=== PATIENT | male | born 1950 | race Caucasian/White ===

== ENCOUNTER → 2016-06-25 | Outpatient (CLI) | payer MEDICARE, OTHER ==
[~2016-06-25] MED LIST: BARIUM SUSPENSION 2.1% (VANILLA SILQ) 450 ML PO ONE; CATHETER FLUSH 10 ML SYR IV PRN; IOHEXOL 350 MG/ML 100 ML (OMNIPAQUE 350) VIAL IV ONE; NS 100 ML (IVPB) BAG IV ONE
--- NOTE | 2016-06-25 13:28 | Diagnostic Imaging Report ---
PROCEDURE: CT abdomen and pelvis with contrast. TECHNIQUE: Multiple contiguous axial images were obtained through the abdomen and pelvis after administration of intravenous contrast. INDICATION: Back pain, elevated PSA. COMPARISON: No priors. FINDINGS: There is a tiny cyst, 1 cm, off the upper pole of the left kidney. This showed no complexity. Kidneys are otherwise normal. No opaque stone. No hydronephrosis. The liver, gallbladder, adrenals, spleen, and pancreas are all unremarkable. No abdominal or pelvic mesenteric or retroperitoneal adenopathy. The urinary bladder had an unremarkable appearance. It is not well distended resulting in some thickening of its smith limiting its evaluation. There is a small hiatal hernia. There is no ascites, abscess, hematoma, or other fluid collection. There is no free air. There is solid posterior bony fusion of the lower lumbar spine and lumbosacral junction. There are degenerative changes with spondylosis. No acute-appearing osseous pathology. IMPRESSION: Unobstructed urinary tracts. No mass or adenopathy. Simple left renal cortical cyst. Small hiatal hernia. Spondylosis and prior lumbar surgery. No acute finding. Dictated by: Dictated on workstation # [id number]
--- NOTE | 2016-06-25 16:58 | Diagnostic Imaging Report ---
Whole body bone scan. Technique: After the intravenous administration of 26.3 mCi of Technetium 99m MDP, whole body delayed phase bone scan images were obtained with lateral views of the head and neck and the chest regions. INDICATION: Prostate cancer. FINDINGS: Mild areas of increased activity in the lumbar spine are seen favored to be degenerative. There is mild the joint-related activity mostly in the shoulders and around the sternoclavicular joints and SI joints in a somewhat symmetric fashion, probably degenerative-related. Renal excretion and bladder activity is noted. IMPRESSION: Mild midlumbar spine activity is favored to be degenerative with no convincing evidence of metastasis. Dictated by: Dictated on workstation # [id number]
== END ==
LOC: CARD 11:03
PROVIDERS: ATTEND Internal Medicine
DX: R97.20 Elevated prostate specific antigen [PSA] (principal); M54.9 Dorsalgia, unspecified; R35.1 Nocturia
CPT/HCPCS: 74177; 78306

== ENCOUNTER 2016-08-12 14:07 | Outpatient (RCR) | payer MEDICARE, OTHER | END 2016-11-10 | disposition home or self-care (01) | LOC: ONC 14:07 | PROVIDERS: ATTEND Radiology Radiation Oncology | DX: C61 Malignant neoplasm of prostate (principal) | CPT/HCPCS: 99214 ==

== ENCOUNTER 2016-12-02 13:46 | Outpatient (RCR) | payer MEDICARE, OTHER ==
[2016-12-16] MEDS ORDERED: ASPI-586 PO (12:06)
[2016-12-16] MEDS ORDERED: BUPR300T43 PO (12:06)
[2016-12-16] MEDS ORDERED: MULT1TAB69 PO (13:32)
[2016-12-16] MEDS ORDERED: OMG1KC PO (13:32)
[2016-12-16] MEDS ORDERED: GLUC100016 PO (13:32)
[2016-12-16] MEDS ORDERED: BUPR300T51 PO (13:32)
[2016-12-16] MEDS ORDERED: CALC-654 PO (13:32)
[2016-12-19] MEDS ORDERED: CIPR-225 PO (09:41)
[2016-12-19] MEDS ORDERED: HYDR-3874 PO (09:41)
[2016-12-19] MEDS ORDERED: SILO8CAP PO (09:41)
[2016-12-19] MEDS ORDERED: PHEN-640 PO (09:41)
== END 2017-01-03 | disposition home or self-care (01) ==
LOC: ONC 13:46
PROVIDERS: ATTEND Radiology Radiation Oncology
DX: C61 Malignant neoplasm of prostate (principal)
CPT/HCPCS: 76873

== ENCOUNTER 2016-12-16 11:52 | Outpatient (CLI) | payer MEDICARE, OTHER ==
[~2016-12-16] VITALS: Ht 172.7 cm; Wt 89.8 kg
[2016-12-16 12:01] VITALS: BP 171/103
[2016-12-16] MEDS ORDERED: BUPR300T43 PO (12:06)
[2016-12-16] MEDS ORDERED: ASPI-586 PO (12:06)
[2016-12-16] MEDS ORDERED: GLUC100016 PO (13:32)
[2016-12-16] MEDS ORDERED: BUPR300T51 PO (13:32)
[2016-12-16] MEDS ORDERED: MULT1TAB69 PO (13:32)
[2016-12-16] MEDS ORDERED: OMG1KC PO (13:32)
[2016-12-16] MEDS ORDERED: CALC-654 PO (13:32)
--- NOTE | 2016-12-16 14:04 | Diagnostic Imaging Report ---
PA and lateral views of the chest. INDICATION: Preoperative evaluation for brachytherapy. FINDINGS: The lungs are clear. The heart size is normal. No effusion or pneumothorax. The mediastinum and vinny appear unremarkable. IMPRESSION: Unremarkable exam. Dictated by: Dictated on workstation # [id number]
== END 2016-12-16 12:40 | disposition home or self-care (01) ==
LOC: PREOP 11:52
PROVIDERS: ATTEND Urology
DX: Z01.811 Encounter for preprocedural respiratory examination (principal); C61 Malignant neoplasm of prostate
CPT/HCPCS: 71020; 87081

== ENCOUNTER 2016-12-19 06:09 | Day surgery (SDC) | payer MEDICARE, OTHER ==
[~2016-12-19] VITALS: Ht 172.7 cm; Wt 89.8 kg
[~2016-12-19 06:09] MED LIST changes: +ASPI-586 PO; -BARIUM SUSPENSION 2.1% (VANILLA SILQ) 450 ML PO ONE; +BUPR300T43 PO; +BUPR300T51 PO; +CALC-654 PO; -CATHETER FLUSH 10 ML SYR IV PRN; +GLUC100016 PO; -IOHEXOL 350 MG/ML 100 ML (OMNIPAQUE 350) VIAL IV ONE; +MULT1TAB69 PO; -NS 100 ML (IVPB) BAG IV ONE; +OMG1KC PO
--- OUTSIDE RECORDS SUMMARY | 2016-12-19 06:18 | XMS REPORT | Clinical Summary ---
Author Author [facility] Organization [facility] Address Unknown Phone Unavailable Care Team Providers Care Hotel Operations Manager Name Role Phone PCP Unavailable Source Comments Some departments are not documenting in the electronic medical record. If you do not see the information that you expected, contact Release of Information in the Health Information Management department at [phone] for further assistance in locating additional records.[facility] Allergies Active Allergy Reactions Severity Noted Date Comments Hay Fever And Allergy RHINORRHEA Low 08/26/2016 Relief Current Medications Prescription Sig. Disp. Refills Start End Date Status Date buPROPion XL (WELLBUTRIN 300 mg. 08/22/19 Active XL) 300 mg tablet 17 aspirin EC 81 mg tablet Take 81 mg by mouth Active daily. Take with food. naproxen (NAPROSYN) 500 Take 500 mg by mouth Active mg tablet twice daily with meals. Take with food. FOLIC Take by mouth. Active ACID/MULTIVIT-MIN/LUTEIN (CENTRUM SILVER PO) DOCOSAHEXANOIC ACID/EPA Take 1,000 mg by mouth. Active (FISH OIL PO) GLUC PIEDRA/CHONDRO PIEDRA A/VIT Take 1,500 mg by mouth. Active C/MN (GLUCOSAMINE 1500 COMPLEX PO) OMEPRAZOLE (PRILOSEC PO) Take 200 mg by mouth as Active Needed. Active Problems Problem Noted Date Prostate cancer (HCC) 08/26/2016 Overview: 06/05/16: PSA 60.6 06/25/16: PSA >50 07/09/16: TRUSP bx - Shyla 5+3=8, 3+5=8, 3+4=7, 3+3=6 in 07/17 cores with two cores suspicious for adenocarcinoma 08/26/16: Initial visit with Dr. Neel oh Assessment & Plan: Mr. Malin is a 65 year old gentleman self-referred to Dr. Shaikh for a new diagnosis of high risk prostate cancer. He had 4/ cores positive for cancer with one core 5+3=8 and a second core 3+5=8, after having an elevated PSA to 60.6 which was the first PSA test of his life. Plan: - I had an extensive consultation with the patient today reviewing the spectrum of prostate cancer treatment options, including the pros and cons and risks and benefits of each. Surgery (RRP, RALP) Radiation (XRT, BrachyTx) Cryoablation High Intensity Focused Ultrasound (HIFU) Androgen Deprivation Tx (ADT) Active surveillance () Risks and complications of surgery, especially stress incontinence and erectile dysfunction reviewed in detail. Differences between robotic prostatectomy and radical retropubic prostatectomy reviewed. Typical benefit of robotic prostatectomy include less blood loss and shorter hospital stay, but otherwise results are similar in regards to oncologic outcome, stress incontinence and erectile dysfunction compared to retropubic prostatectomy. Risks and complications of radiation, reviewed. I discussed that given his high risk disease with a high PSA and shyla pattern 5 disease, there is an increased risk that his prostate cancer is no longer confined to the prostate. Based on the [facility] nomogram, his risk of having non-organ confined disease is 97% with 38% change of lymph node involvement. After careful consideration, the patient would like to proceed with radiation and androgen deprivation therapy which he will have done in [place], [place]. Family History Medical History Relation Name Comments Hypertension Brother Diabetes Mother Heart Disease Mother Hypertension Mother Kidney Disease Mother Diabetes Sister Relation Name Status Comments Brother Mother Sister Social History Tobacco Use Types Packs/Day Years Used Date Never Smoker Sex Assigned at Date Recorded Not on file Last Filed Vital Signs Vital Sign Reading Time Taken Blood Pressure 148/88 08/26/2016 1:42 PM CDT Pulse 68 08/26/2016 1:42 PM CDT Temperature - - Respiratory Rate - - Oxygen Saturation - - Inhaled Oxygen - - Concentration Weight 89.4 kg (197 lb) 08/26/2016 1:42 PM CDT Height 172.7 cm (5' 8") 08/26/2016 1:42 PM CDT Body Mass Index 29.95 08/26/2016 1:42 PM CDT Plan of Treatment Health Maintenance Due Date Last Done Comments HEPATITIS C SCREENING 1949 PHYSICAL (COMPREHENSIVE) 1956 EXAM PERTUSSIS VACCINE 1960 TETANUS VACCINE 1966 COLORECTAL CANCER 09/05/1999 SCREENING SHINGLES VACCINE 2009 PREVNAR/PNEUMOVAX (#1) 2014 INFLUENZA VACCINE 12/05/2016 Results Not on filefrom Last 3 Months
[2016-12-19] MEDS ORDERED: LACTATED RINGERS 1,000 ML IV PRN (06:41)
[2016-12-19] MEDS ORDERED: LEVOFLOXACIN 500 MG/100 ML IV 100 ML ONE (07:00)
[2016-12-19] MEDS ORDERED: SEVOFLURANE (ULTANE) 15 ML INHAL SOLN ONE ×3 (07:02→09:14)
[2016-12-19] MEDS ORDERED: LACTATED RINGERS 1,000 ML IV ONE (07:02)
[2016-12-19] MEDS ORDERED: LIDOCAINE PF 2% 5 ML (XYLOCAINE) VIAL ONE (07:02)
[2016-12-19] MEDS ORDERED: proPOfol 200 MG/20 ML (DIPRIVAN) VIAL IV ONE (07:02)
[2016-12-19] MEDS ORDERED: fentaNYL INJECTION 100 MCG/2 ML AMP ONE (07:03)
[2016-12-19] MEDS ORDERED: MIDAZOLAM 2 MG/2 ML (VERSED) VIAL ONE (07:03)
--- NOTE | 2016-12-19 07:04 | Progress Note-Pre Operative ---
Pre-Operative Progress Note H&P Reviewed The H&P was reviewed, patient examined and no changes noted. Date Seen by Provider: Dec 19, 2016 Time Seen by Provider: 07:04 Date H&P Reviewed: Dec 19, 2016 Time H&P Reviewed: 07:04 Pre-Operative Diagnosis: CA PROSTATE PINO KLEIN MD Dec 19, 2016 7:04 am
[2016-12-19 07:45] VITALS: BP 144/93
[2016-12-19] MEDS ORDERED: ONDANSETRON 4 MG/2 ML (SDV) Z0FRAN ONE (07:57)
[2016-12-19] MEDS ORDERED: DEXAMETHASONE 10 MG/ML (DECADRON) 1 ML VIAL ONE (07:57)
[2016-12-19] MEDS ORDERED: LEVOFLOXACIN 500 MG/D5W 100 ML (PRE-MIX) IV ONE (08:15)
--- NOTE | 2016-12-19 09:19 | Progress Note-Post Operative ---
Post-Operative Progess Note Surgeon (s)/Axle Polisher (s) Surgeon PINO KLEIN MD Axle Polisher: HALIMA Pre-Operative Diagnosis CA PROSTATE Post-Operative Diagnosis SAME Procedure & Operative Findings Date of Procedure 12/19/16 Procedure Performed/Findings BRACHYTHERAPY AND CYSTOGRAM Anesthesia Type GENERAL Estimated Blood Loss Estimated blood loss (mL): LESS THAN 50CC Specimens/Packing Specimens Removed N/A Packing: N/A PINO KLEIN MD Dec 19, 2016 9:19 am
--- NOTE | 2016-12-19 09:23 | Discharge Inst-Urology ---
Discharge Inst-Urology Discharge Medications New, Converted, or Re-newed RX: RX on Chart Patient Instructions/Follow Up Plan Please make appointment to been seen in office in 2 weeks. Rest till then to DC Barrett Thursday AM May resume ASA Thursday if no bleeding Increase oral fluids for 48 hours and then as needed. Diet and Activity as tolerated. If questions or concerns contact your physician Or seek help at emergency department. PINO KLEIN MD Dec 19, 2016 9:23 am
[2016-12-19] MEDS ORDERED: PHEN-640 PO (09:41)
[2016-12-19] MEDS ORDERED: CIPR-225 PO (09:41)
[2016-12-19] MEDS ORDERED: HYDR-3874 PO (09:41)
[2016-12-19] MEDS ORDERED: SILO8CAP PO (09:41)
[2016-12-19] MEDS ORDERED: morphine INJ 10 MG/ML 1ML (SYR OR VIAL) IVP PRN (09:45)
[2016-12-19] MEDS ORDERED: ONDANSETRON 4 MG/2 ML (SDV) Z0FRAN IVP PRN (09:45)
[2016-12-19] MEDS ORDERED: fentaNYL INJECTION 100 MCG/2 ML AMP IVP PRN (09:45)
[2016-12-19 10:20] VITALS: BP 103/63
[2016-12-19 10:50] VITALS: BP 119/73
[2016-12-19 11:20] VITALS: BP 109/71
[2016-12-19 12:10] VITALS: BP 109/71
--- NOTE | 2016-12-19 13:51 | Diagnostic Imaging Report ---
Intraoperative view of the pelvis. Brachytherapy for prostate cancer. Fluoroscopy time provided is 15 seconds. FINDINGS / IMPRESSION: Provided image demonstrates fiducial markers placed in the area of the prostate below the bladder which is filled with contrast where the Barrett catheter is seen. Dictated by: Dictated on workstation # [id number]
== END 2016-12-19 12:10 | disposition home or self-care (01) ==
LOC: SDC 06:09
PROVIDERS: ATTEND Urology
DX: C61 Malignant neoplasm of prostate (principal); K21.9 Gastro-esophageal reflux disease without esophagitis; F32.9 Major depressive disorder, single episode, unspecified; M19.91 Primary osteoarthritis, unspecified site; Z79.899 Other long term (current) drug therapy
CPT/HCPCS: 76965; 77318; 77332; 77336; 77470; 77778

== ENCOUNTER 2017-03-23 08:19 | Outpatient (RCR) | payer MEDICARE, OTHER ==
[~2017-03-23 08:19] MED LIST changes: +CIPR-225 PO; +HYDR-3874 PO; +PHEN-640 PO; +SILO8CAP PO
== END 2017-04-16 | disposition home or self-care (01) ==
LOC: ONC 08:19
PROVIDERS: ATTEND Radiology Radiation Oncology
DX: Z51.0 Encounter for antineoplastic radiation therapy (principal); C61 Malignant neoplasm of prostate
CPT/HCPCS: 77290; 77295; 77300; 77301; 77334; 77336; 77338; 77385

== ENCOUNTER 2017-05-19 14:31 | Outpatient (RCR) | payer MEDICARE, OTHER ==
[~2017-05-19 14:31] MED LIST changes: +HYDR-3870 PO; -HYDR-3874 PO
[2017-05-25] MEDS ORDERED: NAPR-1033 PO (13:29)
== END 2017-08-17 | disposition home or self-care (01) ==
LOC: ONC 14:31
PROVIDERS: ATTEND Radiology Radiation Oncology
DX: C61 Malignant neoplasm of prostate (principal)
CPT/HCPCS: 99213

== ENCOUNTER 2017-05-25 05:35 | Outpatient (CLI) | payer MEDICARE, OTHER ==
[~2017-05-25] VITALS: Ht 172.7 cm; Wt 97.5 kg
[~2017-05-25 05:35] MED LIST changes: -HYDR-3870 PO; +HYDR-3874 PO
[2017-05-25] MEDS ORDERED: NAPR-1033 PO (13:29)
== END 2017-05-25 13:34 ==
LOC: PREOP 05:35
PROVIDERS: ATTEND Specialist
DX: Z01.818 Encounter for other preprocedural examination (principal); H25.11 Age-related nuclear cataract, right eye

== ENCOUNTER → 2017-06-08 | Outpatient (CLI) | payer MEDICARE, OTHER ==
[~2017-06-08] VITALS: Ht 172.7 cm; Wt 97.5 kg
[~2017-06-08] MED LIST changes: +HYDR-3870 PO; -HYDR-3874 PO; +NAPR-1033 PO
== END ==
LOC: PREOP 06:31
PROVIDERS: ATTEND Specialist
DX: Z01.818 Encounter for other preprocedural examination (principal); H25.89 Other age-related cataract

== ENCOUNTER 2017-06-12 08:44 | Day surgery (SDC) | payer MEDICARE, OTHER ==
[~2017-06-12] VITALS: Ht 172.7 cm; Wt 97.5 kg
[2017-06-12] MEDS ORDERED: LIDOCAINE PF 1% 2 ML AMP IR PRN (09:00)
[2017-06-12] MEDS ORDERED: TIMOLOL MALEATE 0.5% 5 ML (TIMOPTIC) BTL OU PRN (09:00)
[2017-06-12] MEDS ORDERED: POVIDONE (BETADINE) OPHTH SOLN 5% 30 ML OP ONE (09:00)
[2017-06-12] MEDS ORDERED: EPINEPHrine INJECTION 1 MG/ML AMP INJ ONE (09:00)
[2017-06-12] MEDS ORDERED: VANCOMYCIN/BSS (COMPOUNDED) 10 MG/ML SYR OP ONE (09:00)
[2017-06-12] MEDS: TETRACAINE 0.5% OPHTH SOLN 4 ML BTL (SINGLE DOSE ONLY) OU PRN ×4 (09:14→09:46)
[2017-06-12] MEDS: PHENYLEPHRINE 10% OPHTH (NEO-SYN) 5 ML BTL OU SCH ×3 (09:28→09:46)
[2017-06-12] MEDS: CYCLOPENTOLATE 1% (CYCLOGYL) 2 ML DROPS OP SCH ×3 (09:28→09:46)
[2017-06-12 09:30] VITALS: BP 150/84
--- NOTE | 2017-06-12 10:09 | Ophthalmologist Pre-Op Note ---
Pre-Operative Progress Note H&P Reviewed The H&P was reviewed, patient examined and no changes noted. Date H&P Reviewed: Jun 12, 2017 Time H&P Reviewed: 10:09 Pre-Op Dx Cataract, Left Eye DIVINE MOTT MD Jun 12, 2017 10:09
[2017-06-12] MEDS ORDERED: MIDAZOLAM 2 MG/2 ML (VERSED) VIAL ONE (10:12)
--- NOTE | 2017-06-12 10:38 | Ophthalmology Operative Report ---
Cataract removal/placement IOL PREOPERATIVE DIAGNOSIS: Cataract Left Eye POSTOPERATIVE DIAGNOSIS: Cataract Left Eye PROCEDURE: Cataract removal and placement of posterior chamber implant, left eye SURGEON: Angel Mott ANESTHESIA: Topical with sedation COMPLICATIONS: None ESTIMATED BLOOD LOSS: Minimal DESCRIPTION OF PROCEDURE: After proper informed consent was obtained, the patient, a 66 male, was taken to the Operating Room and the left eye was anesthetized with tetracaine. They left eye was then prepped and draped in the usual manner. A wire lid speculum was placed. A paracentesis was made at the left hand position. Preservative free lidocaine was injected into the anterior chamber followed by viscoelastic. A clear corneal incision was made in the temporal position. A capsulorrhexis was preformed and the central nuclear and cortical material were removed. The posterior capsule was polished and Vipul [id number] 28.5 IOL was placed into the capsular bag. The residual viscoelastic was aspirated and balanced saline solution was injected into the anterior chamber. 1.0 ml of Vancomycin (10mg/ 1.0ml) was injected into the anterior chamber. The would was checked and found to be water tight. The patient tolerated the procedure well without complications. ANGEL MOTT MD Jun 12, 2017 10:38
[2017-06-12 10:55] VITALS: BP 176/102
== END 2017-06-12 10:55 | disposition home or self-care (01) ==
LOC: SDC 08:44
PROVIDERS: ATTEND Specialist
DX: H26.9 Unspecified cataract (principal); K21.9 Gastro-esophageal reflux disease without esophagitis; F32.9 Major depressive disorder, single episode, unspecified; M19.91 Primary osteoarthritis, unspecified site; C61 Malignant neoplasm of prostate; Z79.899 Other long term (current) drug therapy